=== PATIENT | male | born 1950 | race Caucasian/White ===

== ENCOUNTER 2018-01-28 16:00 | Emergency (ER) | payer OTHER, MEDICARE ==
[~2018-01-28 16:00] MED LIST: KEFLEX500 MG PO
--- NOTE | 2018-01-28 16:51 | RADIOLOGY REPORT ---
EXAMINATION: XR KNEE, LEFT CLINICAL INFORMATION: Swelling in the knee. Fracture versus an effusion. COMPARISON: None TECHNIQUE: Four views of the left knee. FINDINGS: There is no fracture. There is no dislocation. There is a moderate volume suprapatellar joint effusion. There is mild joint narrowing of the medial femoral tibial joint. There are marginal bone spurs of the femur and tibia at the lateral and the medial femoral tibial compartment. There is no bone erosions. There are no soft tissue calcification. IMPRESSION: 1. Moderate volume suprapatellar joint effusion. 2. Degenerative joint disease.
[2018-01-28 16:59] LABS: ABSOLUTE BASOPHIL COUNT 0 /CUMM (0.0-0.2); ABSOLUTE EOSINOPHIL COUNT 0.3 /CUMM (0.0-0.7); ABSOLUTE GRANULOCYTE CT 6.4 /CUMM (1.4-6.5); ABSOLUTE LYMPH COUNT 1.6 /CUMM (1.2-3.4); ABSOLUTE MONOCYTE COUNT 0.6 /CUMM (0.10-0.60); BASOPHIL % 0.5 % (0.0-2.0); GRANULOCYTE % 71.3 % (42.2-75.2); MEAN CORPUSCULAR HGB 31.9 PG (27.0-31.0); MEAN CORPUSCULAR HGB CONC 34.3 G/DL (33.0-37.0); MEAN PLATELET VOLUME 7.9 FL (7.4-10.4); PLATELET COUNT 307 /CUMM (130-400); RBC DISTRIBUTION WIDTH 14.3 % (11.5-14.5); RED BLOOD CELL CT 4.73 /CUMM (4.70-6.10)
--- NOTE | 2018-01-28 19:58 | ED UPPER/LOWER EXTREMITY COMPL ---
History of Present Illness General Chief Complaint: Lower Extremity Problems Stated Complaint: PT LT KNEE IS SWOLLEN Source: patient Exam Limitations: no limitations Vital Signs & Intake/Output Vital Signs & Intake/Output Vital Signs Date Time Temp Pulse Resp B/P B/P Pulse O2 O2 Flow FiO2 Mean Ox Delivery Rate 01/28 2010 98.3 65 18 144/90 97 Room Air 01/28 194 Room Air 01/28 1606 98.0 84 16 145/91 97 Room Air Allergies Coded Allergies: NO KNOWN ALLERGIES (11/18/14) Reconcile Medications Cephalexin (Keflex) 500 MG CAP 1 TAB PO TID CELLULITIS Triage Note: PT TO ED WITH C/O ATRAUMATIC LEFT KNEE SWELLING BEGINNING YESTERDAY. STATES LEFT KNEE IS STIFF BUT NOT PAINFUL. Triage Nurses Notes Reviewed? yes HPI: 59-year-old white male who works in [employer] presents with atraumatic swelling of the left knee this afternoon after wearing different boots that caused a change in his gait. He denies any knee pain, leg pain, redness, fever, chills, hemoptysis or history of DVT. Patient was concerned about the potential for blood clot. He reports he had a similar episode of knee swelling approximately 1 month ago that resolved on its own. Past History Travel History Traveled to [place] past 21 day No Medical History Any Pertinent Medical History? see below for history Neurological: NONE EENT: NONE Cardiovascular: NONE Respiratory: NONE Gastrointestinal: NONE Hepatic: NONE Renal: NONE Musculoskeletal: NONE Psychiatric: NONE Endocrine: NONE Blood Disorders: NONE Cancer(s): NONE [employer] ARCHITECT/Reproductive: NONE Surgical History Surgical History: RIGHT KNEE. Psychosocial History What is your primary language Swazi Tobacco Use: Never used Family History Hx Contributory? No Review of Systems Review of Systems Constitutional: Reports: see HPI. Denies: no symptoms, chills, diaphoresis, fever, malaise, weakness, unexplained weight loss. Physical Exam Physical Exam General Appearance: well developed/nourished Comments: Focus exam of the left knee shows prepatellar swelling without appreciable effusion. There is full range of motion of the knee. There is no Homans sign or calf tenderness. There is no warmth to the knee. Progress Differential Diagnosis: cellulitis, gout, septic arthritis, bursitis Plan of Care: Orders Procedure Date/time Status HIGH SENSITIVITY CRP 01/28 1605 Complete WESTERGREN SED RATE 01/28 1605 Complete COMPREHENSIVE METABOLIC PANEL 01/28 1605 Complete CBC WITHOUT DIFFERENTIAL 01/28 160 Complete Laboratory Tests 01/28/18 1645: Anion Gap 10, Estimated GFR > 60, BUN/Creatinine Ratio 16.3, Glucose 106 H, Calcium 9.9, Total Bilirubin 0.4, AST 21, ALT 24, Alkaline Phosphatase 41, C- React Prot High Sens 0.3 L, Total Protein 6.7, Albumin 4.3, Globulin 2.4, Albumin/Globulin Ratio 1.8, CBC w Diff NO MAN DIFF REQ, RBC 4.73, MCV 93.0, MCH 31.9 H, MCHC 34.3, RDW 14.3, MPV 7.9, Gran % 71.3, Lymphocytes % 18.1 L, Monocytes % 7.1, Eosinophils % 3.0, Basophils % 0.5, Absolute Granulocytes 6.4, Absolute Lymphocytes 1.6, Absolute Monocytes 0.6, Absolute Eosinophils 0.3, Absolute Basophils 0, ESR Westergren 3 Comments: 67-year-old white male with a traumatic prepatellar bursitis. Patient is advised to take [id number] Motrin and follow-up with Orth O if not better. Departure Departure Time of Disposition: 1956 Disposition: HOME OR SELF CARE Condition: Stable Clinical Impression Primary Impression: Prepatellar bursitis of left knee Referrals: Risa CINTRON,Iván Ram Departure Forms: Customer Survey General Discharge Information
[2018-01-28 20:10] VITALS: BP 144/90
== END 2018-01-28 20:11 ==
LOC: ERH 16:00
PROVIDERS: Physician Assistant
DX: M70.42 Prepatellar bursitis, left knee (principal)
CPT/HCPCS: 73562-LT